=== PATIENT | female | born 1935 | race African-American/Black ===

== ENCOUNTER → 2017-09-25 | Outpatient (CLI) | payer MEDICARE ==
[~2017-09-25] MED LIST: ASPI325T8 PO; CHOL200074 PO; EZET1TAB30 PO; LISI10TA2 PO; METO25TA2 PO
--- NOTE | 2017-09-25 16:00 | KCIC ---
Bilateral digital screening mammograms: Reason for examination: Routine screening. No previous examinations for comparison. New baseline. Interpretation was made with the benefit of CAD. The skin and nipples show no abnormalities. No abnormal axillary lymph nodes are seen. The breast parenchyma shows scattered fibroglandular density. (Breast density: Category B.) There are no dominant masses, suspicious calcifications or architectural distortions. Some benign appearing calcifications are present. Impression: No evidence of malignancy. Recommend routine screening. BI-RADS category 2: Benign "Our facility is accredited by the [employer] Mammography Program." This patient's information has been entered into a reminder system for the patient to be notified with the results of her examination and a target date for the next mammogram. Electronically signed by: Paula Vazquez MD (09/25/2017 3:56 PM) [id number]
== END | disposition home or self-care (01) ==
LOC: KCIC MAMMO 12:10
PROVIDERS: ATTEND Family Medicine
DX: Z12.31 Encounter for screening mammogram for malignant neoplasm of breast (principal)
CPT/HCPCS: G0202; 77067

== ENCOUNTER 2019-05-12 11:30 | Inpatient (IN) | payer MEDICARE, OTHER ==
[~2019-05-12] VITALS: Ht 175.3 cm; Wt 102.1 kg
[~2019-05-12 11:30] MED LIST changes: +ASCO500T2 PO; +ASPI-612 PO; +CELE200C PO; +HYDR-3164 PO; +METO25TA4 PO; +MUPI15CR8 TP; +PRED1TAB3 PO; +TRAM50TA PO; +VIT1TABL8 PO
[2019-05-12 12:05] VITALS: BP 157/65
[2019-05-12] MEDS ORDERED: TRAM50TA PO (12:20)
[2019-05-12] MEDS ORDERED: TIZA4TAB2 PO (12:20)
[2019-05-12] MEDS ORDERED: PRED5SOL PO (12:20)
[2019-05-12] MEDS ORDERED: CHLO250T4 PO (12:20)
[2019-05-12] MEDS ORDERED: CELE200C PO (12:20)
--- NOTE | 2019-05-12 14:09 | PDOC1 ---
History and Physical Date of Admission Date of Admission DATE: 05/12/19 TIME: 14:08 Identification/Chief Complaint Chief Complaint direct admit due to right hip wound 83 yo F w/ PMHx, high cholesterol, CAD, Hypertension, lymphedema, lung ca who found on the floor 04/12 , she states she slid off her mattress and fell TRANSFERRED TO EARLY APRIL 2019 She has no significant pain complain. She has multiple abrasions, healing . ri ght hip wound now progressive deep wound since admit to She notes she has had progressive bilateral LE weakness and swelling over the past 4 months, has been seeing PMR for this, previously with compression stockings, . Past Medical History Past Medical History Past Medical History Past Medical History: CAD, Cancer, High Cholesterol, Hypertension, Other Additional Past Medical Histor: lyphodema, venous insufficency, tendonitis, bursitis, lung ca Past Surgical History: Other Additional Past Surgical Histo: lobectomy left, cardic stents x2, hernia surgery Alcohol Use: None Drug Use: None FAMILY HX HTN Cardiovascular: CAD, HTN, Hyperlipidemia Pulmonary: Other CENTRAL NERVOUS SYSTEM: Periperal neuropathy GI: No pertinent hx Heme/Onc: Cancer Hepatobiliary: No pertinent hx Psych: No pertinent hx Musculoskeletal: Weakness, Swelling Rheumatologic: No pertinent hx Infectious disease: No pertinent hx Renal/: No pertinent hx Endocrine: No pertinent hx Dermatology: Rash Past Surgical History Past Surgical History: Other Family History Family History: Hypertension Social History Smoke: No ALCOHOL: none Drugs: None Current Medications Current Medications Active Scripts Active I-Sidra Tablet (Vit A,C & E/Lutein/Minerals) 1 Each Tablet 1 Tab PO DAILY Vitamin C (Ascorbic Acid) 500 Mg Tablet 500 Mg PO DAILY Aspirin Ec (Aspirin) 81 Mg Tablet.dr 81 Mg PO DAILYWBKFT Metoprolol Tartrate 25 Mg Tablet 25 Mg PO BID MDD 1 [place] 5-325 Tablet (Acetaminophen/Hydrocodone Bitart) 1 Each Tablet 1 Tab PO PRN Q6HRS PRN Reported Tizanidine Hcl 4 Mg Tablet 2 Mg PO TID Chlorothiazide 250 Mg Tablet 25 Mg PO DAILY Prednisone 5 Mg/5 Ml Solution 10 Mg PO DAILY Allergies Allergies: Coded Allergies: No Known Drug Allergies (Unverified , 04/07/14) ROS Review of System Review of Systems Review of Systems Constitutional: Denies fever or chills [] Eyes: Denies change in visual acuity, redness, or eye pain [] HENT: Denies nasal congestion or sore throat [] Respiratory: Denies cough or shortness of breath [] Cardiovascular: No additional information not addressed in HPI [] GI: Denies abdominal pain, nausea, vomiting, bloody stools or diarrhea [] : Denies dysuria or hematuria [] Musculoskeletal: Denies back pain or joint pain [] Integument: Multiple abrasions RIGHT HIP WOUND HAS PROGRESSED X 1 WEEK Neurologic: Denies headache, focal weakness or sensory changes [] 14 PT systems were reviewed and found to be within normal limits, except as documented General: YES: Fatigue ALLERGY AND IMMUNOLOGY: No: Hives, Insect Bite Sensitivity, Itchy/Watery Eyes, Nasal Congestion, Post Nasal Drip, Seasonal Allergies, Other Hematological and Lymphatic: No: Bleeding Problems, Blood Clots, Blood Transfusions, Brusing, Night Sweats, Pallor, Swollen Lymph Nodes, Other Respiratory: No: Cough, Hemoptysis, Orthopnea, Pleuritic Pain, Shortness of breath, SOB with excertion, Sputum Changes, Stridor, Tachypnea, Wheezing, Other Musculoskeletal: Yes Gait Disturbance, Yes Joint Stiffness Neurological: Yes Gait Disturbance Skin: Yes Skin Lesion Changes Physical Exam Physical Exam Physical Exam Physical Exam Constitutional: Obese patient. Well developed, well nourished, no acute distress, non-toxic appearance. [] HENT: Normocephalic, atraumatic, bilateral external ears normal, oropharynx moist, no oral exudates, nose normal. [] Eyes: PERRLA, EOMI, conjunctiva normal, no discharge. [] Neck: Normal range of motion, no tenderness, supple, no stridor. [] Cardiovascular:Heart rate regular rhythm, no murmur [] Lungs & Thorax: Bilateral breath sounds clear to auscultation [] Abdomen: Bowel sounds normal, soft, no tenderness, no masses, no pulsatile masses. [] Skin: old pressure also noted on the RIGHT buttocks, WITH DRAINAGE, wick inserted by snf staff POA Back: Midline thoracic spine tenderness, no CVA tenderness. [] Extremities: No tenderness, no cyanosis, no clubbing, ROM intact, lymphedema bilateral lower extremities. Neurologic: Alert and oriented X 3, normal motor function, normal sensory function, no focal deficits noted. Cranial nerves II through XII intact Psychologic: Affect normal, judgement normal, mood normal. [] General: Alert, Oriented X3, Cooperative, No acute distress HEENT: Atraumatic, EOMI Lungs: Clear to auscultation Heart: RRR, no rubs Breasts: Not examined Abdomen: Normal bowel sounds, Soft Rectal Exam: not examined Extremities: No clubbing, No cyanosis Neuro: Normal speech, Cranial nerves 3-12 NL Psych/Mental Status: Mental status NL, Mood NL VTE Prophylaxis Ordered VTE Prophylaxis Devices: Contraindicated VTE Pharmacological Prophylaxi: Yes Assessment/Plan Assessment/Plan impression RIGHT Hip pressure wound, new drainage packed cultured CAD s/p stent placement - Follows closely with Dr. Henson Hypertension - cont meds. Hyperlipidemia - statin hx Hypokalemia - will monitor, Lung CA - s/p resection Valvular disease - Chronic venous insufficiency - //OT for lymphedema wraps Left leg weakness - Diastolic CHF - plan off loading bed ortho consult wound culture iv rocephin 1 gm q 24 hrs dvt prophylaxis wound care consult 58 min pt exam, chart review, > 50% of time spent with exam, chart review, pt care coordination ERICKA BIANCHI MD May 12, 2019 14:09
[2019-05-12] MEDS ORDERED: HYDROcodone/APAP 5/325MG 1 TAB TABLET PO PRN (14:30)
[2019-05-12 15:00] VITALS: BP 153/70
[2019-05-12] MEDS: traMADol 50 MG TABLET PO PRN ×2 (15:01→21:29)
[2019-05-12] MEDS: cefTRIAXone IV Push 1 GM VIAL. IVP SCH (15:02)
--- NOTE | 2019-05-12 15:11 | NUR ---
Wound Care: Ortho consulted to possibly debride wounds. Pictured and measured, and dressed by admission nurse recently this shift. Will follow up on 05/13/19
[2019-05-12 15:29] LABS: BASO % 0 % (0-3); EOS # 0.1 x10^3/uL (0.0-0.7); EOS % 1 % (0-3); HEMATOCRIT 34.8 % (36.0-47.0); HEMOGLOBIN 11.2 g/dL (12.0-15.5); LYMPH # 0.9 x10^3/uL (1.0-4.8); LYMPH % 11 % (24-48); MEAN CORPUSCULAR HEMOGLOBIN 29 pg (25-35); MEAN CORPUSCULAR HGB CONC 32 g/dL (31-37); MEAN CORPUSCULAR VOLUME 90 fL (79-100); MONO # 0.4 x10^3/uL (0.0-1.1); MONO % 5 % (0-9); NEUT # 7.1 x10^3/uL (1.8-7.7); NEUT % 83 % (31-73); PLATELET COUNT 204 x10^3/uL (140-400); RED BLOOD COUNT 3.88 x10^6/uL (3.50-5.40); WHITE BLOOD COUNT 8.6 x10^3/uL (4.0-11.0)
[2019-05-12 15:46] LABS: ALBUMIN 3.2 g/dL (3.4-5.0); ALBUMIN/GLOBULIN RATIO 0.9 (1.0-1.7); CALCIUM 9.2 mg/dL (8.5-10.1); GFR 64.2; POTASSIUM 4.3 mmol/L (3.5-5.1); TOTAL BILIRUBIN 0.5 mg/dL (0.2-1.0); TOTAL PROTEIN 6.9 g/dL (6.4-8.2)
--- NOTE | 2019-05-12 16:16 | NUR ---
SS following up with discharge planning. SS received notification that pt was from [facility]. SS contacted [facility], ; fax [phone], and confirmed that pt was a long-term and rehabilitation resident from there facility and was able to return when medically stable for discharge.
[2019-05-12 19:00] VITALS: BP 150/64
[2019-05-12] MEDS: ENOXAPARIN 40 MG/0.4 ML SYRINGE. SQ SCH (21:00)
[2019-05-12] MEDS: METOPROLOL TART IMMED RELEASE 25 MG TABLET. PO SCH (21:26)
--- NOTE | 2019-05-12 21:45 | NUR ---
Pt refused scheduled dose of Lovenox this PM despite this nurse explaining its use in preventing blood clots, stating, "I just don't know why I need it, what are the criteria to need it? I don't have blood clots and I won't get them". Pt continued expressing her concern saying, "That sounds like a vitamin, I don't want to take it just because something might happen". This nurse educated patient on common indications for Lovenox and reviewed pt's health history discussing potential risk factors for blood clots. Pt also provided with a handout about Lovenox as an additional resource. Pt in bed and call light within reach, will continue to monitor.
[2019-05-12 23:00] VITALS: BP 134/68
[2019-05-13] VITALS (13 sets, daily range): BP systolic 104–183; BP diastolic 42–99
--- NOTE | 2019-05-13 08:20 | PDOC ---
PROGRESS NOTES Chief Complaint Chief Complaint RIGHT Hip pressure wound, new drainage packed cultured CAD s/p stent placement - Follows closely with Dr. Henson Hypertension - cont meds. Hyperlipidemia - statin hx Hypokalemia - will monitor, Lung CA - s/p resection Valvular disease - Chronic venous insufficiency - //OT for lymphedema wraps Left leg weakness - Diastolic CHF - History of Present Illness History of Present Illness 83 yo F w/ PMHx, high cholesterol, CAD, Hypertension, lymphedema, lung ca who found on the floor 04/12 , she states she slid off her mattress and fell TRANSFERRED TO E[facility] APRIL 2019 She has no significant pain complain. She has multiple abrasions, healing . right hip wound now progressive deep wound since admit to She notes she has had progressive bilateral LE weakness and swelling over the past 4 months, Today sleeping hard, easily roused, states she is ready for surgery, planned for this evening. Vitals Vitals Vital Signs Date Time Temp Pulse Resp B/P (MAP) Pulse Ox O2 Delivery O2 Flow Rate FiO2 05/13/19 03:00 97.4 57 18 149/68 (95) 99 Room Air 97.4 Physical Exam General: Alert, Oriented X3, Cooperative, No acute distress Lungs: Clear Abdomen: Normal bowel sounds, Soft Extremities: No clubbing, No cyanosis Labs LABS Laboratory Tests Test 05/12/19 15:20 White Blood Count 8.6 x10^3/uL (4.0-11.0) Red Blood Count 3.88 x10^6/uL (3.50-5.40) Hemoglobin 11.2 g/dL (12.0-15.5) Hematocrit 34.8 % (36.0-47.0) Mean Corpuscular Volume 90 fL (79-100) Mean Corpuscular Hemoglobin 29 pg (25-35) Mean Corpuscular Hemoglobin Concent 32 g/dL (31-37) Red Cell Distribution Width 15.0 % (11.5-14.5) Platelet Count 204 x10^3/uL (140-400) Neutrophils (%) (Auto) 83 % (31-73) Lymphocytes (%) (Auto) 11 % (24-48) Monocytes (%) (Auto) 5 % (0-9) Eosinophils (%) (Auto) 1 % (0-3) Basophils (%) (Auto) 0 % (0-3) Neutrophils # (Auto) 7.1 x10^3/uL (1.8-7.7) Lymphocytes # (Auto) 0.9 x10^3/uL (1.0-4.8) Monocytes # (Auto) 0.4 x10^3/uL (0.0-1.1) Eosinophils # (Auto) 0.1 x10^3/uL (0.0-0.7) Basophils # (Auto) 0.0 x10^3/uL (0.0-0.2) Sodium Level 142 mmol/L (136-145) Potassium Level 4.3 mmol/L (3.5-5.1) Chloride Level 103 mmol/L (98-107) Carbon Dioxide Level 28 mmol/L (21-32) Anion Gap 11 (6-14) Blood Urea Nitrogen 38 mg/dL (7-20) Creatinine 1.0 mg/dL (0.6-1.0) Estimated GFR (Cockcroft-Gault) 64.2 BUN/Creatinine Ratio 38 (6-20) Glucose Level 112 mg/dL (70-99) Calcium Level 9.2 mg/dL (8.5-10.1) Total Bilirubin 0.5 mg/dL (0.2-1.0) Aspartate Amino Transf (AST/SGOT) 18 U/L (15-37) Alanine Aminotransferase (ALT/SGPT) 21 U/L (14-59) Alkaline Phosphatase 34 U/L (46-116) Total Protein 6.9 g/dL (6.4-8.2) Albumin 3.2 g/dL (3.4-5.0) Albumin/Globulin Ratio 0.9 (1.0-1.7) Comment Review of Relevant I have reviewed the following items esteban (where applicable) has been applied. Labs Laboratory Tests Test 05/12/19 15:20 White Blood Count 8.6 x10^3/uL (4.0-11.0) Red Blood Count 3.88 x10^6/uL (3.50-5.40) Hemoglobin 11.2 g/dL (12.0-15.5) Hematocrit 34.8 % (36.0-47.0) Mean Corpuscular Volume 90 fL (79-100) Mean Corpuscular Hemoglobin 29 pg (25-35) Mean Corpuscular Hemoglobin Concent 32 g/dL (31-37) Red Cell Distribution Width 15.0 % (11.5-14.5) Platelet Count 204 x10^3/uL (140-400) Neutrophils (%) (Auto) 83 % (31-73) Lymphocytes (%) (Auto) 11 % (24-48) Monocytes (%) (Auto) 5 % (0-9) Eosinophils (%) (Auto) 1 % (0-3) Basophils (%) (Auto) 0 % (0-3) Neutrophils # (Auto) 7.1 x10^3/uL (1.8-7.7) Lymphocytes # (Auto) 0.9 x10^3/uL (1.0-4.8) Monocytes # (Auto) 0.4 x10^3/uL (0.0-1.1) Eosinophils # (Auto) 0.1 x10^3/uL (0.0-0.7) Basophils # (Auto) 0.0 x10^3/uL (0.0-0.2) Sodium Level 142 mmol/L (136-145) Potassium Level 4.3 mmol/L (3.5-5.1) Chloride Level 103 mmol/L (98-107) Carbon Dioxide Level 28 mmol/L (21-32) Anion Gap 11 (6-14) Blood Urea Nitrogen 38 mg/dL (7-20) Creatinine 1.0 mg/dL (0.6-1.0) Estimated GFR (Cockcroft-Gault) 64.2 BUN/Creatinine Ratio 38 (6-20) Glucose Level 112 mg/dL (70-99) Calcium Level 9.2 mg/dL (8.5-10.1) Total Bilirubin 0.5 mg/dL (0.2-1.0) Aspartate Amino Transf (AST/SGOT) 18 U/L (15-37) Alanine Aminotransferase (ALT/SGPT) 21 U/L (14-59) Alkaline Phosphatase 34 U/L (46-116) Total Protein 6.9 g/dL (6.4-8.2) Albumin 3.2 g/dL (3.4-5.0) Albumin/Globulin Ratio 0.9 (1.0-1.7) Laboratory Tests Test 7/25/19 15:20 White Blood Count 8.6 x10^3/uL (4.0-11.0) Red Blood Count 3.88 x10^6/uL (3.50-5.40) Hemoglobin 11.2 g/dL (12.0-15.5) Hematocrit 34.8 % (36.0-47.0) Mean Corpuscular Volume 90 fL (79-100) Mean Corpuscular Hemoglobin 29 pg (25-35) Mean Corpuscular Hemoglobin Concent 32 g/dL (31-37) Red Cell Distribution Width 15.0 % (11.5-14.5) Platelet Count 204 x10^3/uL (140-400) Neutrophils (%) (Auto) 83 % (31-73) Lymphocytes (%) (Auto) 11 % (24-48) Monocytes (%) (Auto) 5 % (0-9) Eosinophils (%) (Auto) 1 % (0-3) Basophils (%) (Auto) 0 % (0-3) Neutrophils # (Auto) 7.1 x10^3/uL (1.8-7.7) Lymphocytes # (Auto) 0.9 x10^3/uL (1.0-4.8) Monocytes # (Auto) 0.4 x10^3/uL (0.0-1.1) Eosinophils # (Auto) 0.1 x10^3/uL (0.0-0.7) Basophils # (Auto) 0.0 x10^3/uL (0.0-0.2) Sodium Level 142 mmol/L (136-145) Potassium Level 4.3 mmol/L (3.5-5.1) Chloride Level 103 mmol/L (98-107) Carbon Dioxide Level 28 mmol/L (21-32) Anion Gap 11 (6-14) Blood Urea Nitrogen 38 mg/dL (7-20) Creatinine 1.0 mg/dL (0.6-1.0) Estimated GFR (Cockcroft-Gault) 64.2 BUN/Creatinine Ratio 38 (6-20) Glucose Level 112 mg/dL (70-99) Calcium Level 9.2 mg/dL (8.5-10.1) Total Bilirubin 0.5 mg/dL (0.2-1.0) Aspartate Amino Transf (AST/SGOT) 18 U/L (15-37) Alanine Aminotransferase (ALT/SGPT) 21 U/L (14-59) Alkaline Phosphatase 34 U/L (46-116) Total Protein 6.9 g/dL (6.4-8.2) Albumin 3.2 g/dL (3.4-5.0) Albumin/Globulin Ratio 0.9 (1.0-1.7) Medications Current Medications Ascorbic Acid (Vitamin C) 500 mg DAILY PO ; Start 05/13/19 at 09:00 Aspirin (Ecotrin) 81 mg DAILYWBKFT PO ; Start 05/13/19 at 08:00 Acetaminophen/ Hydrocodone Bitart (Lortab 5/325) 1 tab PRN Q6HRS PRN PO PAIN; Start 05/12/19 at 14:30; Stop 05/12/19 at 14:54; Status DC Metoprolol Tartrate (Lopressor) 25 mg BID PO Last administered on 05/12/19at 21:26; Start 05/12/19 at 21:00 Multivitamins/ Minerals (I-Sidra) 1 tab DAILY PO ; Start 05/13/19 at 09:00 Chlorthalidone (Thalitone) 25 mg DAILY PO ; Start 05/13/19 at 09:00 Ceftriaxone Sodium (Rocephin) 1 gm Q24H IVP Last administered on 05/12/19at 15:02; Start 05/12/19 at 15:00 Enoxaparin Sodium (Lovenox 40mg Syringe) 40 mg Q24H SQ ; Start 05/12/19 at 21:00 Tramadol HCl (Ultram) 50 mg PRN Q6HRS PRN PO PAIN Last administered on 05/12/19at 21:29; Start 05/12/19 at 15:00 Active Scripts Active I-Sidra Tablet (Vit A,C & E/Lutein/Minerals) 1 Each Tablet 1 Tab PO DAILY Vitamin C (Ascorbic Acid) 500 Mg Tablet 500 Mg PO DAILY Aspirin Ec (Aspirin) 81 Mg Tablet.dr 81 Mg PO DAILYWBKFT Metoprolol Tartrate 25 Mg Tablet 25 Mg PO BID MDD 1 [place] 5-325 Tablet (Acetaminophen/Hydrocodone Bitart) 1 Each Tablet 1 Tab PO PRN Q6HRS PRN Reported Tramadol Hcl 50 Mg Tablet 50 Mg PO Q6HRS PRN Celebrex (Celecoxib) 200 Mg Capsule 200 Mg PO BID 30 Days Prednisone 5 Mg/5 Ml Solution 10 Mg PO DAILY Tizanidine Hcl 4 Mg Tablet 2 Mg PO TID Chlorothiazide 250 Mg Tablet 25 Mg PO DAILY Vitals/I & O Vital Sign - Last 24 Hours 05/12/19 05/12/19 05/12/19 05/12/19 12:05 14:22 15:00 15:01 Temp 97.8 97.4 97.8 97.4 Pulse 64 61 Resp 18 18 B/P (MAP) 157/65 (95) 153/70 (97) Pulse Ox 96 98 O2 Delivery Room Air Room Air Room Air Room Air 05/12/19 05/12/19 05/12/19 05/12/19 19:00 20:30 21:26 21:29 Temp 97.5 97.5 Pulse 63 63 Resp 18 16 B/P (MAP) 150/64 (92) 146/61 Pulse Ox 97 O2 Delivery Room Air Room Air Room Air 05/12/19 05/12/19 05/13/19 23:00 23:00 03:00 Temp 97.1 97.4 97.1 97.4 Pulse 65 57 Resp 14 18 18 B/P (MAP) 134/68 (90) 149/68 (95) Pulse Ox 97 99 O2 Delivery Room Air Room Air Room Air Intake and Output 0 05/12/19 05/12/19 05/13/19 14:59 22:59 06:59 Output Total 0 ml Balance 0 ml RUMA HAMILTON MD May 13, 2019 08:20
[2019-05-13] MEDS ORDERED: IV RINGERS,LACTATED 1000ML 1,000 ML IV SCH (08:38)
[2019-05-13] MEDS ORDERED: LIDOCAINE 1% PF 2 ML VIAL. ID PRN (08:45)
[2019-05-13] MEDS ORDERED: fentaNYL PF VIAL 100 MCG/2 ML VIAL IV PRN (08:45)
[2019-05-13] MEDS ORDERED: HYDROmorphone 2 MG/ML VIAL IV PRN (08:45)
[2019-05-13] MEDS ORDERED: MORPHINE SULFATE 2 MG/ML VIAL. IV PRN (08:45)
[2019-05-13] MEDS ORDERED: ONDANSETRON PF 4 MG/2 ML VIAL. IV PRN (08:45)
[2019-05-13] MEDS ORDERED: PROCHLORPERAZINE 10 MG/2 ML VIAL. IV PRN (08:45)
[2019-05-13] MEDS: ASPIRIN ENTERIC COATED 81 MG TABLET.DR. PO SCH (09:17)
[2019-05-13] MEDS: METOPROLOL TART IMMED RELEASE 25 MG TABLET. PO SCH ×2 (09:17→21:37)
[2019-05-13] MEDS: ASCORBIC ACID 500 MG TABLET PO SCH (09:17)
[2019-05-13] MEDS: CHLORTHALIDONE 25 MG TABLET. PO SCH (09:17)
[2019-05-13] MEDS: MULTIVITAMIN I-VITE TABLET. PO SCH (09:17)
[2019-05-13 12:25] LABS: BASO # 0.1 x10^3/uL (0.0-0.2); BASO % 1 % (0-3); EOS # 0.5 x10^3/uL (0.0-0.7); EOS % 7 % (0-3); HEMATOCRIT 33.4 % (36.0-47.0); HEMOGLOBIN 10.9 g/dL (12.0-15.5); LYMPH # 1.7 x10^3/uL (1.0-4.8); LYMPH % 24 % (24-48); MEAN CORPUSCULAR HEMOGLOBIN 29 pg (25-35); MEAN CORPUSCULAR HGB CONC 33 g/dL (31-37); MEAN CORPUSCULAR VOLUME 90 fL (79-100); MONO # 0.8 x10^3/uL (0.0-1.1); MONO % 11 % (0-9); NEUT # 4.2 x10^3/uL (1.8-7.7); NEUT % 57 % (31-73); PLATELET COUNT 203 x10^3/uL (140-400); RED BLOOD COUNT 3.72 x10^6/uL (3.50-5.40); WHITE BLOOD COUNT 7.3 x10^3/uL (4.0-11.0)
[2019-05-13 12:59] LABS: ALBUMIN 3.1 g/dL (3.4-5.0); ALBUMIN/GLOBULIN RATIO 0.9 (1.0-1.7); CALCIUM 9.5 mg/dL (8.5-10.1); GFR 64.2; POTASSIUM 3.9 mmol/L (3.5-5.1); TOTAL BILIRUBIN 0.8 mg/dL (0.2-1.0); TOTAL PROTEIN 6.7 g/dL (6.4-8.2)
--- NOTE | 2019-05-13 13:00 | NUR ---
Wound Care: Wound care consult for multiple wounds, see wound intervention. All wounds assessed and cleansed with wound wash. L great covered by dry eschar, painted with Betadine and left MAUREEN. Both R knee abrasion and R abdomen abrasion covered with honey, Xeroform and foam. R hip not assessed at this time, dressing CDI, pt is to go to OR for debridement and possible wound vac placement this afternoon, will reassess on Thursday. No other wound noted upon assessment, pt able to turn well in bed by herself, encouraged turning q2h while in bed. P500 bed in use. Pt left in bed turned on her back per her request, call light within reach. Wound care will continue to follow.
[2019-05-13] MEDS: cefTRIAXone IV Push 1 GM VIAL. IVP SCH (14:32)
[2019-05-13] MEDS ORDERED: KETOROLAC 30 MG/ML INJ FOR OR. INJ ONE (17:43)
[2019-05-13] MEDS ORDERED: ONDANSETRON PF 4 MG/2 ML VIAL. ONE (17:43)
[2019-05-13] MEDS ORDERED: LIDOCAINE 2% PF 5 ML VIAL. ONE (17:43)
[2019-05-13] MEDS ORDERED: PROPOFOL 20 ML IV ONE (17:43)
[2019-05-13] MEDS ORDERED: SEVOFLURANE 16 TO 30 MINUTES. IH ONE (17:43)
[2019-05-13] MEDS ORDERED: PHENYLEPHRINE in 0.9% NACL PF 1 MG/10 ML SYRINGE. IV ONE (18:06)
[2019-05-13] MEDS ORDERED: ePHEDrine PF IN SALINE 50 MG/10 ML SYRINGE. IV ONE (18:24)
--- NOTE | 2019-05-13 18:55 | PDOC4 ---
Operative Note Operative Note Date of surgery: 05/13/2019 Preoperative diagnosis pressure ulcer right hip area Postoperative diagnosis: Same with skin and deep subcutaneous tissue involvement Operative procedure: Irrigation debridement right hip wound with wound VAC placement Surgeon: Lexus Anesthesia: Gen. Estimated blood loss: 20 mL Complications: None Operative indications: Kanwal is an 83-year-old female with a right hip wound that has had progressive difficulties healing despite wound care treatments. I had gone over with her the necessity of cleaning up the tissue around the wound and the plan of a likely wound VAC and subsequent wound care. We covered the possibility of a long time and healing the necessity of keeping pressure off the area among other risk factors such as nutrition and overall health. All her questions were answered she wishes to proceed with surgical evaluation and treatment. Operative text: Patient was identified procedure verified patient placed in the supine position on the operating table. After adequate amounts of general anesthesia were administered she was placed decubitus right side up with the Stulberg hip positioner and the right hip was prepped and draped in standard sterile fashion. After timeout was performed patient procedure identified and verified sharp debridement was carried out of the right hip of the surrounding necrotic skin and subcutaneous tissue with scalpel and Rngeurs after cultures were obtained intraoperatively. After achieving good edges of viable vascularized tissue bleeding points were controlled by electrocautery thorough irrigation carried out normal saline solution and wound VAC was placed on good suction. Patient was returned recovery room in stable condition having tolerated procedure well DONNA VELARDE MD May 13, 2019 18:55
[2019-05-13] MEDS ORDERED: fentaNYL PF VIAL 100 MCG/2 ML VIAL ONE (19:50)
[2019-05-13] MEDS: fentaNYL PF VIAL 100 MCG/2 ML VIAL IV PRN ×2 (19:53→20:09)
--- NOTE | 2019-05-13 20:10 | NUR ---
Pt arrived from PACU via bed. Pt A&O, VSS, and c/o mild pain at this time. Pt's family at bedside, call light within reach, and bed lowest/locked position, will continue to monitor.
[2019-05-13] MEDS: ENOXAPARIN 40 MG/0.4 ML SYRINGE. SQ SCH (21:00)
[2019-05-13] MEDS: LACTOBACILLUS RHAMNOSUS GG 1 CAPSULE. PO SCH (21:36)
[2019-05-13] MEDS: traMADol 50 MG TABLET PO PRN (21:36)
[2019-05-14] VITALS (8 sets, daily range): BP systolic 113–185; BP diastolic 44–93
--- NOTE | 2019-05-14 00:28 | CONS ---
DATE OF CONSULTATION: 05/13/2019 REASON FOR CONSULTATION: Right hip wound. REQUESTING PHYSICIAN: Dr. Ronny Esteban. HISTORY OF PRESENT ILLNESS: The patient is an 83-year-old female with no surgical history to the right hip, who apparently slid off for mattress and fell to the floor on about 04/12/2019 and has been undergoing wound care since that time. She apparently was direct admitted from her primary care physician and showing no progress of her wound healing. She has had bilateral lower extremity weakness and swelling over the past 4 months as well. PAST MEDICAL HISTORY: Significant for cancer, hypertension, hypercholesterolemia, heart disease, lymphedema, venous insufficiency, tendinitis, and history of lung cancer. PAST SURGICAL HISTORY: Cataracts, cardiac stents, hernia surgery, and lobectomy to her left long. She has some peripheral neuropathy and hyperlipidemia as well. FAMILY HISTORY: Only of hypertension. SOCIAL HISTORY: Denies smoking, alcohol or drug use. MEDICATIONS: List is reviewed. ALLERGIES: She has no known drug allergies. REVIEW OF SYSTEMS: Significant for no fever, chills, chest pain, or shortness of breath. She does have some weakness, but no focal weakness, numbness or tingling. Right hip wound has significantly progressed and has become odorous over the past week. PHYSICAL EXAMINATION: GENERAL: A pleasant, cooperative 83-year-old female. EXTREMITIES: She has normal motion of bilateral shoulders, elbows, wrists. Examination of the right hip reveals a large transverse hip wound going from basically the greater trochanter over posteriorly that is deep to the subcutaneous tissue with some exposed muscle and is odorous and has devitalized tissue at its base. IMPRESSION: Right hip pressure wound, nonhealing. TREATMENT PLAN: I went over with her the need for debridement of this wound and likely wound VAC placement, Infectious Disease consultation, and likely [facility] wound care for this, especially keeping pressure off at. All her questions were answered. She agrees to proceed with surgical evaluation and treatment, which will occur today. DONNA VELARDE MD DR: TERRENCE/zuleima JOB#: [id number] / [id number]
--- NOTE | 2019-05-14 08:38 | PDOC ---
PROGRESS NOTES Chief Complaint Chief Complaint RIGHT Hip pressure wound, new drainage packed cultured CAD s/p stent placement - Follows closely with Dr. Henson Hypertension - cont meds. Hyperlipidemia - statin hx Hypokalemia - will monitor, Lung CA - s/p resection Valvular disease - Chronic venous insufficiency - //OT for lymphedema wraps Left leg weakness - Diastolic CHF - History of Present Illness History of Present Illness 83 yo F w/ PMHx, high cholesterol, CAD, Hypertension, lymphedema, lung ca who found on the floor 04/12 , she states she slid off her mattress and fell TRANSFERRED TO EARLY APRIL 2019 She has no significant pain complain. She has multiple abrasions, healing . right hip wound now progressive deep wound since admit to She notes she has had progressive bilateral LE weakness and swelling over the past 4 months, 05/13: Irrigation debridement right hip wound with wound VAC placement Today awake, somewhat alert, but forgetful. C/o right calf cramping post- operatively and is requesting a laxative for constipation. Vitals Vitals Vital Signs Date Time Temp Pulse Resp B/P (MAP) Pulse Ox O2 Delivery O2 Flow Rate FiO2 05/14/19 07:40 98.2 62 18 144/55 (84) 96 Room Air 98.2 Physical Exam General: Alert, Oriented X3, Cooperative, No acute distress Lungs: Clear Abdomen: Normal bowel sounds, Soft Extremities: No clubbing, No cyanosis Labs LABS Laboratory Tests Test 05/13/19 12:05 White Blood Count 7.3 x10^3/uL (4.0-11.0) Red Blood Count 3.72 x10^6/uL (3.50-5.40) Hemoglobin 10.9 g/dL (12.0-15.5) Hematocrit 33.4 % (36.0-47.0) Mean Corpuscular Volume 90 fL (79-100) Mean Corpuscular Hemoglobin 29 pg (25-35) Mean Corpuscular Hemoglobin Concent 33 g/dL (31-37) Red Cell Distribution Width 15.0 % (11.5-14.5) Platelet Count 203 x10^3/uL (140-400) Neutrophils (%) (Auto) 57 % (31-73) Lymphocytes (%) (Auto) 24 % (24-48) Monocytes (%) (Auto) 11 % (0-9) Eosinophils (%) (Auto) 7 % (0-3) Basophils (%) (Auto) 1 % (0-3) Neutrophils # (Auto) 4.2 x10^3/uL (1.8-7.7) Lymphocytes # (Auto) 1.7 x10^3/uL (1.0-4.8) Monocytes # (Auto) 0.8 x10^3/uL (0.0-1.1) Eosinophils # (Auto) 0.5 x10^3/uL (0.0-0.7) Basophils # (Auto) 0.1 x10^3/uL (0.0-0.2) Sodium Level 141 mmol/L (136-145) Potassium Level 3.9 mmol/L (3.5-5.1) Chloride Level 102 mmol/L (98-107) Carbon Dioxide Level 31 mmol/L (21-32) Anion Gap 8 (6-14) Blood Urea Nitrogen 27 mg/dL (7-20) Creatinine 1.0 mg/dL (0.6-1.0) Estimated GFR (Cockcroft-Gault) 64.2 BUN/Creatinine Ratio 27 (6-20) Glucose Level 87 mg/dL (70-99) Calcium Level 9.5 mg/dL (8.5-10.1) Total Bilirubin 0.8 mg/dL (0.2-1.0) Aspartate Amino Transf (AST/SGOT) 20 U/L (15-37) Alanine Aminotransferase (ALT/SGPT) 20 U/L (14-59) Alkaline Phosphatase 32 U/L (46-116) Total Protein 6.7 g/dL (6.4-8.2) Albumin 3.1 g/dL (3.4-5.0) Albumin/Globulin Ratio 0.9 (1.0-1.7) Comment Review of Relevant I have reviewed the following items esteban (where applicable) has been applied. Labs Laboratory Tests Test 05/12/19 13:00 05/12/19 15:20 05/13/19 12:05 Nasal Screen MRSA (PCR) Negative (Negative) White Blood Count 8.6 x10^3/uL (4.0-11.0) 7.3 x10^3/uL (4.0-11.0) Red Blood Count 3.88 x10^6/uL (3.50-5.40) 3.72 x10^6/uL (3.50-5.40) Hemoglobin 11.2 g/dL (12.0-15.5) 10.9 g/dL (12.0-15.5) Hematocrit 34.8 % (36.0-47.0) 33.4 % (36.0-47.0) Mean Corpuscular Volume 90 fL (79-100) 90 fL (79-100) Mean Corpuscular Hemoglobin 29 pg (25-35) 29 pg (25-35) Mean Corpuscular Hemoglobin Concent 32 g/dL (31-37) 33 g/dL (31-37) Red Cell Distribution Width 15.0 % (11.5-14.5) 15.0 % (11.5-14.5) Platelet Count 204 x10^3/uL (140-400) 203 x10^3/uL (140-400) Neutrophils (%) (Auto) 83 % (31-73) 57 % (31-73) Lymphocytes (%) (Auto) 11 % (24-48) 24 % (24-48) Monocytes (%) (Auto) 5 % (0-9) 11 % (0-9) Eosinophils (%) (Auto) 1 % (0-3) 7 % (0-3) Basophils (%) (Auto) 0 % (0-3) 1 % (0-3) Neutrophils # (Auto) 7.1 x10^3/uL (1.8-7.7) 4.2 x10^3/uL (1.8-7.7) Lymphocytes # (Auto) 0.9 x10^3/uL (1.0-4.8) 1.7 x10^3/uL (1.0-4.8) Monocytes # (Auto) 0.4 x10^3/uL (0.0-1.1) 0.8 x10^3/uL (0.0-1.1) Eosinophils # (Auto) 0.1 x10^3/uL (0.0-0.7) 0.5 x10^3/uL (0.0-0.7) Basophils # (Auto) 0.0 x10^3/uL (0.0-0.2) 0.1 x10^3/uL (0.0-0.2) Sodium Level 142 mmol/L (136-145) 141 mmol/L (136-145) Potassium Level 4.3 mmol/L (3.5-5.1) 3.9 mmol/L (3.5-5.1) Chloride Level 103 mmol/L (98-107) 102 mmol/L (98-107) Carbon Dioxide Level 28 mmol/L (21-32) 31 mmol/L (21-32) Anion Gap 11 (6-14) 8 (6-14) Blood Urea Nitrogen 38 mg/dL (7-20) 27 mg/dL (7-20) Creatinine 1.0 mg/dL (0.6-1.0) 1.0 mg/dL (0.6-1.0) Estimated GFR (Cockcroft-Gault) 64.2 64.2 BUN/Creatinine Ratio 38 (6-20) 27 (6-20) Glucose Level 112 mg/dL (70-99) 87 mg/dL (70-99) Calcium Level 9.2 mg/dL (8.5-10.1) 9.5 mg/dL (8.5-10.1) Total Bilirubin 0.5 mg/dL (0.2-1.0) 0.8 mg/dL (0.2-1.0) Aspartate Amino Transf (AST/SGOT) 18 U/L (15-37) 20 U/L (15-37) Alanine Aminotransferase (ALT/SGPT) 21 U/L (14-59) 20 U/L (14-59) Alkaline Phosphatase 34 U/L (46-116) 32 U/L (46-116) Total Protein 6.9 g/dL (6.4-8.2) 6.7 g/dL (6.4-8.2) Albumin 3.2 g/dL (3.4-5.0) 3.1 g/dL (3.4-5.0) Albumin/Globulin Ratio 0.9 (1.0-1.7) 0.9 (1.0-1.7) Laboratory Tests Test 05/13/19 12:05 White Blood Count 7.3 x10^3/uL (4.0-11.0) Red Blood Count 3.72 x10^6/uL (3.50-5.40) Hemoglobin 10.9 g/dL (12.0-15.5) Hematocrit 33.4 % (36.0-47.0) Mean Corpuscular Volume 90 fL (79-100) Mean Corpuscular Hemoglobin 29 pg (25-35) Mean Corpuscular Hemoglobin Concent 33 g/dL (31-37) Red Cell Distribution Width 15.0 % (11.5-14.5) Platelet Count 203 x10^3/uL (140-400) Neutrophils (%) (Auto) 57 % (31-73) Lymphocytes (%) (Auto) 24 % (24-48) Monocytes (%) (Auto) 11 % (0-9) Eosinophils (%) (Auto) 7 % (0-3) Basophils (%) (Auto) 1 % (0-3) Neutrophils # (Auto) 4.2 x10^3/uL (1.8-7.7) Lymphocytes # (Auto) 1.7 x10^3/uL (1.0-4.8) Monocytes # (Auto) 0.8 x10^3/uL (0.0-1.1) Eosinophils # (Auto) 0.5 x10^3/uL (0.0-0.7) Basophils # (Auto) 0.1 x10^3/uL (0.0-0.2) Sodium Level 141 mmol/L (136-145) Potassium Level 3.9 mmol/L (3.5-5.1) Chloride Level 102 mmol/L (98-107) Carbon Dioxide Level 31 mmol/L (21-32) Anion Gap 8 (6-14) Blood Urea Nitrogen 27 mg/dL (7-20) Creatinine 1.0 mg/dL (0.6-1.0) Estimated GFR (Cockcroft-Gault) 64.2 BUN/Creatinine Ratio 27 (6-20) Glucose Level 87 mg/dL (70-99) Calcium Level 9.5 mg/dL (8.5-10.1) Total Bilirubin 0.8 mg/dL (0.2-1.0) Aspartate Amino Transf (AST/SGOT) 20 U/L (15-37) Alanine Aminotransferase (ALT/SGPT) 20 U/L (14-59) Alkaline Phosphatase 32 U/L (46-116) Total Protein 6.7 g/dL (6.4-8.2) Albumin 3.1 g/dL (3.4-5.0) Albumin/Globulin Ratio 0.9 (1.0-1.7) Medications Current Medications Ascorbic Acid (Vitamin C) 500 mg DAILY PO Last administered on 05/13/19 09:17; Start 05/13/19 at 09:00 Aspirin (Ecotrin) 81 mg DAILYWBKFT PO Last administered on 05/13/19at 09:17; Start 05/13/19 at 08:00 Acetaminophen/ Hydrocodone Bitart (Lortab 5/325) 1 tab PRN Q6HRS PRN PO PAIN; Start 05/12/19 at 14:30; Stop 05/12/19 at 14:54; Status DC Metoprolol Tartrate (Lopressor) 25 mg BID PO Last administered on 05/13/19at 21:37; Start 05/12/19 at 21:00 Multivitamins/ Minerals (I-Sidra) 1 tab DAILY PO Last administered on 05/13/19at 09:17; Start 05/13/19 at 09:00 Chlorthalidone (Thalitone) 25 mg DAILY PO Last administered on 05/13/19at 09:17; Start 05/13/19 at 09:00 Ceftriaxone Sodium (Rocephin) 1 gm Q24H IVP Last administered on 05/13/19at 14:32; Start 05/12/19 at 15:00 Enoxaparin Sodium (Lovenox 40mg Syringe) 40 mg Q24H SQ ; Start 05/12/19 at 21:00 Tramadol HCl (Ultram) 50 mg PRN Q6HRS PRN PO PAIN Last administered on 05/13/19at 21:36; Start 05/12/19 at 15:00 Ondansetron HCl (Zofran) 4 mg PRN Q6HRS PRN IV NAUSEA/VOMITING; Start 05/13/19 at 08:45; Stop 05/14/19 at 08:44 Fentanyl Citrate (Fentanyl 2ml Vial) 25 mcg PRN Q5MIN PRN IV MILD PAIN 1-3; Start 05/13/19 at 08:45; Stop 05/14/19 at 08:44 Fentanyl Citrate (Fentanyl 2ml Vial) 50 mcg PRN Q5MIN PRN IV MODERATE TO SEVERE PAIN Last administered on 05/13/19at 20:09; Start 05/13/19 at 08:45; Stop 05/14/19 at 08:44 Morphine Sulfate (Morphine Sulfate) 1 mg PRN Q10MIN PRN IV SEVERE PAIN 7-10; Start 05/13/19 at 08:45; Stop 05/14/19 at 08:44 Ringer's Solution 1,000 ml @ 30 mls/hr Q24H IV Last administered on 05/13/19at 17:37; Start 05/13/19 at 08:38; Stop 05/13/19 at 20:37; Status DC Lidocaine HCl (Xylocaine-Mpf 1% 2ml Vial) 2 ml 1X PRN PRN ID IV START; Start 05/13/19 at 08:45; Stop 05/14/19 at 08:44 Hydromorphone HCl (Dilaudid) 0.5 mg PRN Q10MIN PRN IV SEV PAIN, Second choice; Start 05/13/19 at 08:45; Stop 05/14/19 at 08:44 Prochlorperazine Edisylate (Compazine) 5 mg PACU PRN PRN IV NAUSEA, MRX1; Start 05/13/19 at 08:45; Stop 05/14/19 at 08:44 Lactobacillus Rhamnosus (Culturelle) 1 cap BID PO Last administered on 05/13/19at 21:36; Start 05/13/19 at 21:00 Sevoflurane (Ultane) 15 ml STK-MED ONCE IH ; Start 05/13/19 at 17:43; Stop 05/13/19 at 17:44; Status DC Propofol 20 ml @ As Directed STK-MED ONCE IV ; Start 05/13/19 at 17:43; Stop 05/13/19 at 17:44; Status DC Lidocaine HCl (Lidocaine Pf 2% Vial) 5 ml STK-MED ONCE .ROUTE ; Start 05/13/19 at 17:43; Stop 05/13/19 at 17:44; Status DC Ketorolac Tromethamine (Toradol For Or Only) 30 mg STK-MED ONCE INJ ; Start 05/13/19 at 17:43; Stop 05/13/19 at 17:44; Status DC Ondansetron HCl (Zofran) 4 mg STK-MED ONCE .ROUTE ; Start 05/13/19 at 17:43; Stop 05/13/19 at 17:44; Status DC Phenylephrine HCl (PHENYLEPHRINE in 0.9% NACL PF) 1 mg STK-MED ONCE IV ; Start 05/13/19 at 18:06; Stop 05/13/19 at 18:07; Status DC Ephedrine Sulfate (ePHEDrine PF IN SALINE SYRINGE) 50 mg STK-MED ONCE IV ; Start 05/13/19 at 18:24; Stop 05/13/19 at 18:25; Status DC Fentanyl Citrate (Fentanyl 2ml Vial) 100 mcg STK-MED ONCE .ROUTE ; Start 05/13/19 at 19:50; Stop 05/13/19 at 19:51; Status DC Active Scripts Active I-Sidra Tablet (Vit A,C & E/Lutein/Minerals) 1 Each Tablet 1 Tab PO DAILY Vitamin C (Ascorbic Acid) 500 Mg Tablet 500 Mg PO DAILY Aspirin Ec (Aspirin) 81 Mg Tablet.dr 81 Mg PO DAILYWBKFT Metoprolol Tartrate 25 Mg Tablet 25 Mg PO BID MDD 1 [place] 5-325 Tablet (Acetaminophen/Hydrocodone Bitart) 1 Each Tablet 1 Tab PO PRN Q6HRS PRN Reported Tramadol Hcl 50 Mg Tablet 50 Mg PO Q6HRS PRN Celebrex (Celecoxib) 200 Mg Capsule 200 Mg PO BID 30 Days Prednisone 5 Mg/5 Ml Solution 10 Mg PO DAILY Tizanidine Hcl 4 Mg Tablet 2 Mg PO TID Chlorothiazide 250 Mg Tablet 25 Mg PO DAILY Vitals/I & O Vital Sign - Last 24 Hours 05/13/19 05/13/19 05/13/19 05/13/19 09:17 11:09 15:40 17:43 Temp 97.4 97.7 97.0 97.4 97.7 97.0 Pulse 53 53 59 69 Resp 18 18 20 B/P (MAP) 135/63 153/64 (93) 183/73 (109) 198/79 Pulse Ox 97 98 97 O2 Delivery Room Air Room Air Room Air 05/13/19 05/13/19 05/13/19 05/13/19 18:47 19:02 19:17 19:32 Pulse 70 72 57 61 Resp 20 20 20 20 B/P (MAP) 172/68 165/78 151/78 165/82 Pulse Ox 98 95 99 91 O2 Delivery Room Air Room Air Room Air Room Air 05/13/19 05/13/19 05/13/19 05/13/19 19:47 19:53 19:59 20:09 Temp 97.0 97.4 97.0 97.4 Pulse 78 62 Resp 20 20 18 20 B/P (MAP) 156/75 155/67 (96) Pulse Ox 99 99 99 99 O2 Delivery Room Air Room Air Room Air Room Air 05/13/19 05/13/19 05/13/19 05/13/19 20:15 20:30 20:30 20:30 Pulse 62 59 Resp 18 18 16 B/P (MAP) 161/71 (101) 147/60 (89) Pulse Ox 95 98 O2 Delivery Room Air Room Air Room Air Room Air 05/13/19 05/13/19 05/13/19 05/13/19 20:45 21:00 21:30 21:36 Pulse 60 58 58 Resp 18 18 18 16 B/P (MAP) 149/61 (90) 157/66 (96) 138/58 (84) Pulse Ox 98 98 95 O2 Delivery Room Air Room Air Room Air Room Air 05/13/19 05/13/19 05/13/19 05/13/19 21:37 22:01 22:36 23:00 Temp 97.4 97.4 Pulse 62 67 63 Resp 18 18 18 B/P (MAP) 138/58 107/44 (65) 110/99 (103) Pulse Ox 97 95 O2 Delivery Room Air Room Air Room Air 05/13/19 05/14/19 05/14/19 05/14/19 23:01 00:01 03:00 07:40 Temp 98.1 98.2 98.1 98.2 Pulse 65 60 59 62 Resp 18 18 18 18 B/P (MAP) 104/42 (62) 115/44 (67) 132/67 (88) 144/55 (84) Pulse Ox 94 96 96 96 O2 Delivery Room Air Room Air Room Air Room Air Intake and Output 05/13/19 05/13/19 05/14/19 15:00 23:00 07:00 Intake Total 0 ml 320 ml Output Total 100 ml 0 ml Balance 0 ml 220 ml 0 ml RUMA HAMILTON MD May 14, 2019 08:37
[2019-05-14] MEDS: MULTIVITAMIN I-VITE TABLET. PO SCH (09:21)
[2019-05-14] MEDS: ASCORBIC ACID 500 MG TABLET PO SCH (09:22)
[2019-05-14] MEDS: traMADol 50 MG TABLET PO PRN (09:22)
[2019-05-14] MEDS: LACTOBACILLUS RHAMNOSUS GG 1 CAPSULE. PO SCH ×2 (09:23→18:16)
[2019-05-14] MEDS: CHLORTHALIDONE 25 MG TABLET. PO SCH (09:23)
[2019-05-14] MEDS: METOPROLOL TART IMMED RELEASE 25 MG TABLET. PO SCH ×2 (09:23→20:49)
[2019-05-14] MEDS: ASPIRIN ENTERIC COATED 81 MG TABLET.DR. PO SCH (09:24)
[2019-05-14] MEDS ORDERED: LACTULOSE 20 GM/30 ML SOLUTION. PO PRN (13:30)
[2019-05-14] MEDS: POLYETHYLENE GLYCOL 3350 17 GM PACKET. PO SCH (15:00)
[2019-05-14] MEDS: PSYLLIUM HUSK (SUGAR FREE) 1 PKT PACKET PO SCH (15:00)
[2019-05-14] MEDS: cefTRIAXone IV Push 1 GM VIAL. IVP SCH (18:01)
[2019-05-14] MEDS: ENOXAPARIN 40 MG/0.4 ML SYRINGE. SQ SCH (20:49)
[2019-05-14] MEDS: ONDANSETRON PF 4 MG/2 ML VIAL. IV PRN (22:49)
[2019-05-15 03:00] VITALS: BP 146/79
[2019-05-15 07:00] VITALS: BP 154/69
[2019-05-15] MEDS: POLYETHYLENE GLYCOL 3350 17 GM PACKET. PO SCH (09:00)
[2019-05-15] MEDS: PSYLLIUM HUSK (SUGAR FREE) 1 PKT PACKET PO SCH (09:00)
--- NOTE | 2019-05-15 09:11 | PDOC ---
PROGRESS NOTES Chief Complaint Chief Complaint RIGHT Hip pressure wound, new drainage packed cultured - vac in place CAD s/p stent placement - Follows closely with Dr. Henson Hypertension - cont meds. Hyperlipidemia - statin hx Hypokalemia - will monitor, Lung CA - s/p resection Valvular disease - Chronic venous insufficiency - //OT for lymphedema wraps Left toe ulcer - wound care to see Left leg weakness - she has had for at least [address] head was negative. PMR seeing outpatient, will need rehab. There is background concern she may have had CVA prior to admission. Will d/w PMR and consult neuro if necessary. Diastolic CHF - unfortunately with increased PA pressures she is at increased risk of right heart failure which appears acute, but required fluids up front for her rhabdo, will try to back off fluids now. History of Present Illness History of Present Illness Ms Medina is a 83 yo F w/ PMHx, high cholesterol, CAD, Hypertension, lymphedema, lung ca who found on the floor 04/12 , she states she slid off her mattress and fell TRANSFERRED TO EARLY APRIL 2019 She has no significant pain complain. She has multiple abrasions, healing . right hip wound now progressive deep wound since admit to She notes she has had progressive bilateral LE weakness and swelling over the past 4 months, 05/13: Irrigation debridement right hip wound with wound VAC placement 05/14: Today awake, somewhat alert, but forgetful. C/o right calf cramping post- operatively and is requesting a laxative for constipation. Forgetful today, pleasant. Little pain. No SOB or CP. Vitals Vitals Vital Signs Date Time Temp Pulse Resp B/P (MAP) Pulse Ox O2 Delivery O2 Flow Rate FiO2 05/15/19 07:00 98.1 66 18 154/69 (97) 96 Room Air 98.1 Physical Exam General: Alert, Oriented X3, Cooperative, No acute distress Lungs: Clear Abdomen: Normal bowel sounds, Soft Extremities: No clubbing, No cyanosis Comment Review of Relevant I have reviewed the following items esteban (where applicable) has been applied. Labs Laboratory Tests Test 05/13/19 12:05 White Blood Count 7.3 x10^3/uL (4.0-11.0) Red Blood Count 3.72 x10^6/uL (3.50-5.40) Hemoglobin 10.9 g/dL (12.0-15.5) Hematocrit 33.4 % (36.0-47.0) Mean Corpuscular Volume 90 fL (79-100) Mean Corpuscular Hemoglobin 29 pg (25-35) Mean Corpuscular Hemoglobin Concent 33 g/dL (31-37) Red Cell Distribution Width 15.0 % (11.5-14.5) Platelet Count 203 x10^3/uL (140-400) Neutrophils (%) (Auto) 57 % (31-73) Lymphocytes (%) (Auto) 24 % (24-48) Monocytes (%) (Auto) 11 % (0-9) Eosinophils (%) (Auto) 7 % (0-3) Basophils (%) (Auto) 1 % (0-3) Neutrophils # (Auto) 4.2 x10^3/uL (1.8-7.7) Lymphocytes # (Auto) 1.7 x10^3/uL (1.0-4.8) Monocytes # (Auto) 0.8 x10^3/uL (0.0-1.1) Eosinophils # (Auto) 0.5 x10^3/uL (0.0-0.7) Basophils # (Auto) 0.1 x10^3/uL (0.0-0.2) Sodium Level 141 mmol/L (136-145) Potassium Level 3.9 mmol/L (3.5-5.1) Chloride Level 102 mmol/L (98-107) Carbon Dioxide Level 31 mmol/L (21-32) Anion Gap 8 (6-14) Blood Urea Nitrogen 27 mg/dL (7-20) Creatinine 1.0 mg/dL (0.6-1.0) Estimated GFR (Cockcroft-Gault) 64.2 BUN/Creatinine Ratio 27 (6-20) Glucose Level 87 mg/dL (70-99) Calcium Level 9.5 mg/dL (8.5-10.1) Total Bilirubin 0.8 mg/dL (0.2-1.0) Aspartate Amino Transf (AST/SGOT) 20 U/L (15-37) Alanine Aminotransferase (ALT/SGPT) 20 U/L (14-59) Alkaline Phosphatase 32 U/L (46-116) Total Protein 6.7 g/dL (6.4-8.2) Albumin 3.1 g/dL (3.4-5.0) Albumin/Globulin Ratio 0.9 (1.0-1.7) Medications Current Medications Ascorbic Acid (Vitamin C) 500 mg DAILY PO Last administered on 05/14/19 09:22; Start 05/13/19 at 09:00 Aspirin (Ecotrin) 81 mg DAILYWBKFT PO Last administered on 05/14/19 09:24; Start 05/13/19 at 08:00 Acetaminophen/ Hydrocodone Bitart (Lortab 5/325) 1 tab PRN Q6HRS PRN PO PAIN; Start 05/12/19 at 14:30; Stop 05/12/19 at 14:54; Status DC Metoprolol Tartrate (Lopressor) 25 mg BID PO Last administered on 05/14/19 20:49; Start 05/12/19 at 21:00 Multivitamins/ Minerals (I-Sidra) 1 tab DAILY PO Last administered on 05/14/19 09:21; Start 05/13/19 at 09:00 Chlorthalidone (Thalitone) 25 mg DAILY PO Last administered on 05/14/19 09:23; Start 05/13/19 at 09:00 Ceftriaxone Sodium (Rocephin) 1 gm Q24H IVP Last administered on 05/14/19 18:01; Start 05/12/19 at 15:00 Enoxaparin Sodium (Lovenox 40mg Syringe) 40 mg Q24H SQ ; Start 05/12/19 at 21:00 Tramadol HCl (Ultram) 50 mg PRN Q6HRS PRN PO PAIN Last administered on 05/14/19 09:22; Start 05/12/19 at 15:00 Ondansetron HCl (Zofran) 4 mg PRN Q6HRS PRN IV NAUSEA/VOMITING; Start 05/13/19 at 08:45; Stop 05/14/19 at 08:44; Status DC Fentanyl Citrate (Fentanyl 2ml Vial) 25 mcg PRN Q5MIN PRN IV MILD PAIN 1-3; Start 05/13/19 at 08:45; Stop 05/14/19 at 08:44; Status DC Fentanyl Citrate (Fentanyl 2ml Vial) 50 mcg PRN Q5MIN PRN IV MODERATE TO SEVERE PAIN Last administered on 05/13/19at 20:09; Start 05/13/19 at 08:45; Stop 05/14/19 at 08:44; Status DC Morphine Sulfate (Morphine Sulfate) 1 mg PRN Q10MIN PRN IV SEVERE PAIN 7-10; Start 05/13/19 at 08:45; Stop 05/14/19 at 08:44; Status DC Ringer's Solution 1,000 ml @ 30 mls/hr Q24H IV Last administered on 05/13/19at 17:37; Start 05/13/19 at 08:38; Stop 05/13/19 at 20:37; Status DC Lidocaine HCl (Xylocaine-Mpf 1% 2ml Vial) 2 ml 1X PRN PRN ID IV START; Start 05/13/19 at 08:45; Stop 05/14/19 at 08:44; Status DC Hydromorphone HCl (Dilaudid) 0.5 mg PRN Q10MIN PRN IV SEV PAIN, Second choice; Start 05/13/19 at 08:45; Stop 05/14/19 at 08:44; Status DC Prochlorperazine Edisylate (Compazine) 5 mg PACU PRN PRN IV NAUSEA, MRX1; Start 05/13/19 at 08:45; Stop 05/14/19 at 08:44; Status DC Lactobacillus Rhamnosus (Culturelle) 1 cap BID PO Last administered on 05/14/19at 09:23; Start 05/13/19 at 21:00 Sevoflurane (Ultane) 15 ml STK-MED ONCE IH ; Start 05/13/19 at 17:43; Stop 05/13/19 at 17:44; Status DC Propofol 20 ml @ As Directed STK-MED ONCE IV ; Start 05/13/19 at 17:43; Stop 05/13/19 at 17:44; Status DC Lidocaine HCl (Lidocaine Pf 2% Vial) 5 ml STK-MED ONCE .ROUTE ; Start 05/13/19 at 17:43; Stop 05/13/19 at 17:44; Status DC Ketorolac Tromethamine (Toradol For Or Only) 30 mg STK-MED ONCE INJ ; Start 05/13/19 at 17:43; Stop 05/13/19 at 17:44; Status DC Ondansetron HCl (Zofran) 4 mg STK-MED ONCE .ROUTE ; Start 05/13/19 at 17:43; Stop 05/13/19 at 17:44; Status DC Phenylephrine HCl (PHENYLEPHRINE in 0.9% NACL PF) 1 mg STK-MED ONCE IV ; Start 05/13/19 at 18:06; Stop 05/13/19 at 18:07; Status DC Ephedrine Sulfate (ePHEDrine PF IN SALINE SYRINGE) 50 mg STK-MED ONCE IV ; Start 05/13/19 at 18:24; Stop 05/13/19 at 18:25; Status DC Fentanyl Citrate (Fentanyl 2ml Vial) 100 mcg STK-MED ONCE .ROUTE ; Start 05/13/19 at 19:50; Stop 05/13/19 at 19:51; Status DC Psyllium Hydrophilic Mucilloid (Metamucil Fiber Packet) 1 pkt DAILY PO ; Start 05/14/19 at 15:00 Polyethylene Glycol (miraLAX PACKET) 17 gm DAILY PO ; Start 05/14/19 at 15:00 Lactulose (Lactulose) 20 gm PRN DAILY PRN PO CONSTIPATION; Start 05/14/19 at 13:30 Ondansetron HCl (Zofran) 4 mg PRN Q6HRS PRN IV NAUSEA/VOMITING Last administered on 05/14/19at 22:49; Start 05/14/19 at 20:30 Active Scripts Active I-Sidra Tablet (Vit A,C & E/Lutein/Minerals) 1 Each Tablet 1 Tab PO DAILY Vitamin C (Ascorbic Acid) 500 Mg Tablet 500 Mg PO DAILY Aspirin Ec (Aspirin) 81 Mg Tablet.dr 81 Mg PO DAILYWBKFT Metoprolol Tartrate 25 Mg Tablet 25 Mg PO BID MDD 1 [place] 5-325 Tablet (Acetaminophen/Hydrocodone Bitart) 1 Each Tablet 1 Tab PO PRN Q6HRS PRN Reported Tramadol Hcl 50 Mg Tablet 50 Mg PO Q6HRS PRN Celebrex (Celecoxib) 200 Mg Capsule 200 Mg PO BID 30 Days Prednisone 5 Mg/5 Ml Solution 10 Mg PO DAILY Tizanidine Hcl 4 Mg Tablet 2 Mg PO TID Chlorothiazide 250 Mg Tablet 25 Mg PO DAILY Vitals/I & O Vital Sign - Last 24 Hours 05/14/19 05/14/19 05/14/19 05/14/19 09:22 09:23 10:22 11:00 Temp 98.5 98.5 Pulse 62 60 Resp 20 20 18 B/P (MAP) 144/55 113/58 (76) Pulse Ox 96 O2 Delivery Room Air Room Air Room Air 05/14/19 05/14/19 05/14/19 05/14/19 15:00 16:22 19:00 20:00 Temp 97.9 97.9 97.5 97.9 97.9 97.5 Pulse 61 61 66 Resp 18 18 18 B/P (MAP) 138/59 (85) 138/59 (85) 182/76 (111) Pulse Ox 99 99 97 O2 Delivery Room Air Room Air Room Air Room Air 05/14/19 05/14/19 05/15/19 05/15/19 20:49 23:01 03:00 07:00 Temp 97.8 97.9 98.1 97.8 97.9 98.1 Pulse 60 66 62 66 Resp 18 18 18 B/P (MAP) 152/66 185/93 (123) 146/79 (101) 154/69 (97) Pulse Ox 97 97 96 O2 Delivery Room Air Room Air Room Air RUMA HAMILTON MD May 15, 2019 09:11
[2019-05-15] MEDS: ONDANSETRON PF 4 MG/2 ML VIAL. IV PRN (09:52)
[2019-05-15] MEDS: CHLORTHALIDONE 25 MG TABLET. PO SCH (09:53)
[2019-05-15] MEDS: traMADol 50 MG TABLET PO PRN ×2 (09:54→21:28)
[2019-05-15] MEDS: MULTIVITAMIN I-VITE TABLET. PO SCH (09:54)
[2019-05-15] MEDS: ASPIRIN ENTERIC COATED 81 MG TABLET.DR. PO SCH (09:54)
[2019-05-15] MEDS: ASCORBIC ACID 500 MG TABLET PO SCH (09:54)
[2019-05-15] MEDS: LACTOBACILLUS RHAMNOSUS GG 1 CAPSULE. PO SCH ×2 (09:54→21:26)
[2019-05-15] MEDS: METOPROLOL TART IMMED RELEASE 25 MG TABLET. PO SCH ×2 (09:55→21:27)
[2019-05-15 11:00] VITALS: BP 111/61
[2019-05-15 15:00] VITALS: BP 151/58
[2019-05-15] MEDS: cefTRIAXone IV Push 1 GM VIAL. IVP SCH (15:00)
[2019-05-15 19:00] VITALS: BP 127/70
[2019-05-15] MEDS: ENOXAPARIN 40 MG/0.4 ML SYRINGE. SQ SCH (21:00)
[2019-05-15 23:00] VITALS: BP 95/54
[2019-05-16] VITALS (7 sets, daily range): BP systolic 92–132; BP diastolic 53–73
[2019-05-16] MEDS: PSYLLIUM HUSK (SUGAR FREE) 1 PKT PACKET PO SCH (09:00)
[2019-05-16] MEDS: POLYETHYLENE GLYCOL 3350 17 GM PACKET. PO SCH (09:00)
[2019-05-16] MEDS: CHLORTHALIDONE 25 MG TABLET. PO SCH (09:01)
[2019-05-16] MEDS: MULTIVITAMIN I-VITE TABLET. PO SCH (09:01)
[2019-05-16] MEDS: METOPROLOL TART IMMED RELEASE 25 MG TABLET. PO SCH ×2 (09:01→21:39)
[2019-05-16] MEDS: ASPIRIN ENTERIC COATED 81 MG TABLET.DR. PO SCH (09:01)
[2019-05-16] MEDS: LACTOBACILLUS RHAMNOSUS GG 1 CAPSULE. PO SCH ×2 (09:01→21:38)
[2019-05-16] MEDS: ASCORBIC ACID 500 MG TABLET PO SCH (09:02)
[2019-05-16] MEDS: traMADol 50 MG TABLET PO PRN ×3 (09:02→21:42)
[2019-05-16] MEDS: LIDOCAINE (700MG/PATCH) PATCH. TD SCH (11:43)
--- NOTE | 2019-05-16 12:13 | PDOC ---
PROGRESS NOTES Chief Complaint Chief Complaint RIGHT Hip pressure wound, new drainage packed cultured - vac in place CAD s/p stent placement - Follows closely with Dr. Henson Hypertension - cont meds. Hyperlipidemia - statin hx Hypokalemia - will monitor, Lung CA - s/p resection Valvular disease - Chronic venous insufficiency - //OT for lymphedema wraps Left toe ulcer - wound care to see Left leg weakness - she has had for at least [address] head was negative. PMR seeing outpatient, will need rehab. There is background concern she may have had CVA prior to admission. Will d/w PMR and consult neuro if necessary. Diastolic CHF - unfortunately with increased PA pressures she is at increased risk of right heart failure which appears acute, but required fluids up front for her rhabdo, will try to back off fluids now. History of Present Illness History of Present Illness Ms Medina is a 83 yo F w/ PMHx, high cholesterol, CAD, Hypertension, lymphedema, lung ca who found on the floor 04/12 , she states she slid off her mattress and fell TRANSFERRED TO [facility] 2019 She has no significant pain complain. She has multiple abrasions, healing . right hip wound now progressive deep wound since admit to She notes she has had progressive bilateral LE weakness and swelling over the past 4 months, 05/13: Irrigation debridement right hip wound with wound VAC placement 05/14: Today awake, somewhat alert, but forgetful. C/o right calf cramping post- operatively and is requesting a laxative for constipation. Forgetful today, pleasant. Little pain. No SOB or CP. Vitals Vitals Vital Signs Date Time Temp Pulse Resp B/P (MAP) Pulse Ox O2 Delivery O2 Flow Rate FiO2 05/16/19 11:00 97.7 59 18 95/54 (68) 97 Room Air 97.7 Physical Exam General: Alert, Oriented X3, Cooperative, No acute distress Lungs: Clear Abdomen: Normal bowel sounds, Soft Extremities: No clubbing, No cyanosis Assessment and Plan Assessmemt and Plan Problems Medical Problems: (1) CAD (coronary artery disease) Status: Chronic (2) Chronic venous insufficiency Status: Chronic (3) Diastolic CHF Status: Chronic (4) HTN (hypertension) Status: Chronic (5) Hyperlipidemia Status: Chronic (6) Hypokalemia Status: Acute Comment Review of Relevant I have reviewed the following items esteban (where applicable) has been applied. Labs Microbiology 05/13/19 Anaerobic/Aerobic Culture, Resulted Pending 05/13/19 Anaerobic Culture Result 1 (ITZ), Resulted Pending 05/13/19 Aerobic Culture, Resulted Pending 05/13/19 Aerobic Culture Result 1 (ITZ), Resulted Pending 05/13/19 Gram Stain - Final, Resulted 05/13/19 Gram Stain Result 1 (ITZ) - Final, Resulted 05/13/19 Gram Stain Result 2 (ITZ) - Final, Resulted Medications Current Medications Ascorbic Acid (Vitamin C) 500 mg DAILY PO Last administered on 05/16/19 09:02; Start 05/13/19 at 09:00 Aspirin (Ecotrin) 81 mg DAILYWBKFT PO Last administered on 05/16/19 09:01; Start 05/13/19 at 08:00 Acetaminophen/ Hydrocodone Bitart (Lortab 5/325) 1 tab PRN Q6HRS PRN PO PAIN; Start 05/12/19 at 14:30; Stop 05/12/19 at 14:54; Status DC Metoprolol Tartrate (Lopressor) 25 mg BID PO Last administered on 05/16/19 09:01; Start 05/12/19 at 21:00 Multivitamins/ Minerals (I-Sidra) 1 tab DAILY PO Last administered on 05/16/19 09:01; Start 05/13/19 at 09:00 Chlorthalidone (Thalitone) 25 mg DAILY PO Last administered on 05/16/19 09:01; Start 05/13/19 at 09:00 Ceftriaxone Sodium (Rocephin) 1 gm Q24H IVP Last administered on 05/15/19at 15:00; Start 05/12/19 at 15:00 Enoxaparin Sodium (Lovenox 40mg Syringe) 40 mg Q24H SQ ; Start 05/12/19 at 21:00 Tramadol HCl (Ultram) 50 mg PRN Q6HRS PRN PO PAIN Last administered on 05/16/19 09:02; Start 05/12/19 at 15:00 Ondansetron HCl (Zofran) 4 mg PRN Q6HRS PRN IV NAUSEA/VOMITING; Start 05/13/19 at 08:45; Stop 05/14/19 at 08:44; Status DC Fentanyl Citrate (Fentanyl 2ml Vial) 25 mcg PRN Q5MIN PRN IV MILD PAIN 1-3; Start 05/13/19 at 08:45; Stop 05/14/19 at 08:44; Status DC Fentanyl Citrate (Fentanyl 2ml Vial) 50 mcg PRN Q5MIN PRN IV MODERATE TO SEVERE PAIN Last administered on 05/13/19at 20:09; Start 05/13/19 at 08:45; Stop 05/14/19 at 08:44; Status DC Morphine Sulfate (Morphine Sulfate) 1 mg PRN Q10MIN PRN IV SEVERE PAIN 7-10; Start 05/13/19 at 08:45; Stop 05/14/19 at 08:44; Status DC Ringer's Solution 1,000 ml @ 30 mls/hr Q24H IV Last administered on 05/13/19at 17:37; Start 05/13/19 at 08:38; Stop 05/13/19 at 20:37; Status DC Lidocaine HCl (Xylocaine-Mpf 1% 2ml Vial) 2 ml 1X PRN PRN ID IV START; Start 05/13/19 at 08:45; Stop 05/14/19 at 08:44; Status DC Hydromorphone HCl (Dilaudid) 0.5 mg PRN Q10MIN PRN IV SEV PAIN, Second choice; Start 05/13/19 at 08:45; Stop 05/14/19 at 08:44; Status DC Prochlorperazine Edisylate (Compazine) 5 mg PACU PRN PRN IV NAUSEA, MRX1; Start 05/13/19 at 08:45; Stop 05/14/19 at 08:44; Status DC Lactobacillus Rhamnosus (Culturelle) 1 cap BID PO Last administered on 05/16/19at 09:01; Start 05/13/19 at 21:00 Sevoflurane (Ultane) 15 ml STK-MED ONCE IH ; Start 05/13/19 at 17:43; Stop at 17:44; Status DC Propofol 20 ml @ As Directed STK-MED ONCE IV ; Start 05/13/19 at 17:43; Stop 05/13/19 at 17:44; Status DC Lidocaine HCl (Lidocaine Pf 2% Vial) 5 ml STK-MED ONCE .ROUTE ; Start 05/13/19 at 17:43; Stop 05/13/19 at 17:44; Status DC Ketorolac Tromethamine (Toradol For Or Only) 30 mg STK-MED ONCE INJ ; Start 05/13/19 at 17:43; Stop 05/13/19 at 17:44; Status DC Ondansetron HCl (Zofran) 4 mg STK-MED ONCE .ROUTE ; Start 05/13/19 at 17:43; Stop 05/13/19 at 17:44; Status DC Phenylephrine HCl (PHENYLEPHRINE in 0.9% NACL PF) 1 mg STK-MED ONCE IV ; Start 05/13/19 at 18:06; Stop 05/13/19 at 18:07; Status DC Ephedrine Sulfate (ePHEDrine PF IN SALINE SYRINGE) 50 mg STK-MED ONCE IV ; Start 05/13/19 at 18:24; Stop 05/13/19 at 18:25; Status DC Fentanyl Citrate (Fentanyl 2ml Vial) 100 mcg STK-MED ONCE .ROUTE ; Start 05/13/19 at 19:50; Stop 05/13/19 at 19:51; Status DC Psyllium Hydrophilic Mucilloid (Metamucil Fiber Packet) 1 pkt DAILY PO ; Start 05/14/19 at 15:00 Polyethylene Glycol (miraLAX PACKET) 17 gm DAILY PO ; Start 05/14/19 at 15:00 Lactulose (Lactulose) 20 gm PRN DAILY PRN PO CONSTIPATION; Start 05/14/19 at 13:30 Ondansetron HCl (Zofran) 4 mg PRN Q6HRS PRN IV NAUSEA/VOMITING Last administered on 05/15/19at 09:52; Start 05/14/19 at 20:30 Lidocaine (Lidoderm) 1 patch DAILY TD Last administered on 05/16/19at 11:43; Start 05/16/19 at 11:30 Miscellaneous (Lidoderm Patch Removal) 1 ea QHS ; Start 05/16/19 at 21:00 Active Scripts Active I-Sidra Tablet (Vit A,C & E/Lutein/Minerals) 1 Each Tablet 1 Tab PO DAILY Vitamin C (Ascorbic Acid) 500 Mg Tablet 500 Mg PO DAILY Aspirin Ec (Aspirin) 81 Mg Tablet.dr 81 Mg PO DAILYWBKFT Metoprolol Tartrate 25 Mg Tablet 25 Mg PO BID MDD 1 Flora 5-325 Tablet (Acetaminophen/Hydrocodone Bitart) 1 Each Tablet 1 Tab PO PRN Q6HRS PRN Reported Tramadol Hcl 50 Mg Tablet 50 Mg PO Q6HRS PRN Celebrex (Celecoxib) 200 Mg Capsule 200 Mg PO BID 30 Days Prednisone 5 Mg/5 Ml Solution 10 Mg PO DAILY Tizanidine Hcl 4 Mg Tablet 2 Mg PO TID Chlorothiazide 250 Mg Tablet 25 Mg PO DAILY Vitals/I & O Vital Sign - Last 24 Hours 05/15/19 05/15/19 05/15/19 05/15/19 15:00 19:00 21:27 21:28 Temp 97.8 98.6 97.8 98.6 Pulse 62 67 67 Resp 20 18 20 B/P (MAP) 151/58 (89) 127/70 (89) 127/70 Pulse Ox 94 96 O2 Delivery Room Air Room Air Room Air 05/15/19 05/15/19 05/15/19 05/16/19 21:30 22:28 23:00 03:00 Temp 98.7 98.7 98.7 98.7 Pulse 61 59 Resp 20 16 18 B/P (MAP) 95/54 (68) 111/68 (82) Pulse Ox 100 100 O2 Delivery Room Air Room Air Room Air Room Air 05/16/19 05/16/19 05/16/19 05/16/19 07:00 07:55 09:01 09:02 Temp 98.5 98.5 Pulse 63 63 Resp 18 B/P (MAP) 123/62 (82) 123/62 Pulse Ox 98 O2 Delivery Room Air Room Air Room Air 05/16/19 11:00 Temp 97.7 97.7 Pulse 59 Resp 18 B/P (MAP) 95/54 (68) Pulse Ox 97 O2 Delivery Room Air Intake and Output 05/15/19 05/15/19 05/16/19 14:59 22:59 06:59 Intake Total 120 ml Output Total 600 ml Balance 120 ml -600 ml KIM CURIEL MD May 16, 2019 12:13
--- NOTE | 2019-05-16 12:53 | NUR ---
SS following up with discharge planning. SS phoned and faxed clinical updates to [facility], ; fax [phone]. Pt is a long term and rehabilitation resident from [facility] and is able to return when medically stable for discharge.
[2019-05-16] MEDS: cefTRIAXone IV Push 1 GM VIAL. IVP SCH (15:10)
--- NOTE | 2019-05-16 17:18 | NUR ---
Wound Care Wound care follow up for wound vac change on right hip s/p I&D 05/13. Cleansed area and applied Veraflo vac with NS 12 ml for 10 min every 4 hours with intermittent suction at [address] Alberts. Other wounds not assessed as the dressings were changed yesterday. No other wounds noted on full skin inspection. will continue to follow for wound vac dressing changes on Thursday.
[2019-05-16] MEDS ORDERED: PATCH REMOVAL. MC SCH (21:00)
[2019-05-16] MEDS: ENOXAPARIN 40 MG/0.4 ML SYRINGE. SQ SCH (21:00)
[2019-05-17 03:00] VITALS: BP 124/78
[2019-05-17 07:00] VITALS: BP 146/71
[2019-05-17] MEDS: PSYLLIUM HUSK (SUGAR FREE) 1 PKT PACKET PO SCH (08:28)
[2019-05-17] MEDS: LIDOCAINE (700MG/PATCH) PATCH. TD SCH (08:28)
[2019-05-17] MEDS: METOPROLOL TART IMMED RELEASE 25 MG TABLET. PO SCH (08:29)
[2019-05-17] MEDS: CHLORTHALIDONE 25 MG TABLET. PO SCH (08:29)
[2019-05-17] MEDS: MULTIVITAMIN I-VITE TABLET. PO SCH (08:29)
[2019-05-17] MEDS: ASCORBIC ACID 500 MG TABLET PO SCH (08:29)
[2019-05-17] MEDS: ASPIRIN ENTERIC COATED 81 MG TABLET.DR. PO SCH (08:29)
[2019-05-17] MEDS: traMADol 50 MG TABLET PO PRN (08:29)
[2019-05-17] MEDS: POLYETHYLENE GLYCOL 3350 17 GM PACKET. PO SCH (08:30)
[2019-05-17] MEDS: LACTOBACILLUS RHAMNOSUS GG 1 CAPSULE. PO SCH (08:30)
[2019-05-17 11:00] VITALS: BP 103/60
--- NOTE | 2019-05-17 12:29 | PDOC ---
PROGRESS NOTES Chief Complaint Chief Complaint RIGHT Hip pressure wound, new drainage packed cultured - vac in place CAD s/p stent placement - Follows closely with Dr. Henson Hypertension - cont meds. Hyperlipidemia - statin hx Hypokalemia - will monitor, Lung CA - s/p resection Valvular disease - Chronic venous insufficiency - //OT for lymphedema wraps Left toe ulcer - wound care to see Left leg weakness - she has had for at least [address] head was negative. PMR seeing outpatient, will need rehab. There is background concern she may have had CVA prior to admission. Will d/w PMR and consult neuro if necessary. Diastolic CHF - unfortunately with increased PA pressures she is at increased risk of right heart failure which appears acute, but required fluids up front for her rhabdo, will try to back off fluids now. History of Present Illness History of Present Illness Ms Medina is a 83 yo F w/ PMHx, high cholesterol, CAD, Hypertension, lymphedema, lung ca who found on the floor 04/12 , she states she slid off her mattress and fell TRANSFERRED TO [facility] APR[facility] 2019 She has no significant pain complain. She has multiple abrasions, healing . right hip wound now progressive deep wound since admit to She notes she has had progressive bilateral LE weakness and swelling over the past 4 months, 05/13: Irrigation debridement right hip wound with wound VAC placement 05/14: Today awake, somewhat alert, but forgetful. C/o right calf cramping post- operatively and is requesting a laxative for constipation. Forgetful today, pleasant. Little pain. No SOB or CP. Vitals Vitals Vital Signs Date Time Temp Pulse Resp B/P (MAP) Pulse Ox O2 Delivery O2 Flow Rate FiO2 05/17/19 11:00 97.6 60 18 103/60 (74) 97 Room Air 97.6 Physical Exam General: Alert, Oriented X3, Cooperative, No acute distress Lungs: Clear Abdomen: Normal bowel sounds, Soft Extremities: No clubbing, No cyanosis Assessment and Plan Assessmemt and Plan Problems Medical Problems: (1) CAD (coronary artery disease) Status: Chronic (2) Chronic venous insufficiency Status: Chronic (3) Diastolic CHF Status: Chronic (4) HTN (hypertension) Status: Chronic (5) Hyperlipidemia Status: Chronic (6) Hypokalemia Status: Acute Comment Review of Relevant I have reviewed the following items esteban (where applicable) has been applied. Labs Microbiology 05/13/19 Anaerobic/Aerobic Culture, Resulted Pending 05/13/19 Anaerobic Culture Result 1 (ITZ), Resulted Pending 05/13/19 Aerobic Culture - Final, Resulted 05/13/19 Aerobic Culture Result 1 (ITZ) - Final, Resulted 05/13/19 Antimicrobic Susceptibility - Final, Resulted 05/13/19 Gram Stain - Final, Resulted 05/13/19 Gram Stain Result 1 (ITZ) - Final, Resulted 05/13/19 Gram Stain Result 2 (ITZ) - Final, Resulted Medications Current Medications Ascorbic Acid (Vitamin C) 500 mg DAILY PO Last administered on 05/17/19 08:29; Start 05/13/19 at 09:00 Aspirin (Ecotrin) 81 mg DAILYWBKFT PO Last administered on 05/17/19 08:29; Start 05/13/19 at 08:00 Acetaminophen/ Hydrocodone Bitart (Lortab 5/325) 1 tab PRN Q6HRS PRN PO PAIN; Start 05/12/19 at 14:30; Stop 05/12/19 at 14:54; Status DC Metoprolol Tartrate (Lopressor) 25 mg BID PO Last administered on 05/17/19 08:29; Start 05/12/19 at 21:00 Multivitamins/ Minerals (I-Sidra) 1 tab DAILY PO Last administered on 05/17/19 08:29; Start 05/13/19 at 09:00 Chlorthalidone (Thalitone) 25 mg DAILY PO Last administered on 05/17/19 08:29; Start 05/13/19 at 09:00 Ceftriaxone Sodium (Rocephin) 1 gm Q24H IVP Last administered on 05/16/19at 15:10; Start 05/12/19 at 15:00 Enoxaparin Sodium (Lovenox 40mg Syringe) 40 mg Q24H SQ ; Start 05/12/19 at 21:00 Tramadol HCl (Ultram) 50 mg PRN Q6HRS PRN PO PAIN Last administered on 05/17/19 08:29; Start 05/12/19 at 15:00 Ondansetron HCl (Zofran) 4 mg PRN Q6HRS PRN IV NAUSEA/VOMITING; Start 05/13/19 at 08:45; Stop 05/14/19 at 08:44; Status DC Fentanyl Citrate (Fentanyl 2ml Vial) 25 mcg PRN Q5MIN PRN IV MILD PAIN 1-3; Start 05/13/19 at 08:45; Stop 05/14/19 at 08:44; Status DC Fentanyl Citrate (Fentanyl 2ml Vial) 50 mcg PRN Q5MIN PRN IV MODERATE TO SEVERE PAIN Last administered on 05/13/19at 20:09; Start 05/13/19 at 08:45; Stop 05/14/19 at 08:44; Status DC Morphine Sulfate (Morphine Sulfate) 1 mg PRN Q10MIN PRN IV SEVERE PAIN 7-10; Start 05/13/19 at 08:45; Stop 05/14/19 at 08:44; Status DC Ringer's Solution 1,000 ml @ 30 mls/hr Q24H IV Last administered on 05/13/19at 17:37; Start 05/13/19 at 08:38; Stop 05/13/19 at 20:37; Status DC Lidocaine HCl (Xylocaine-Mpf 1% 2ml Vial) 2 ml 1X PRN PRN ID IV START; Start 05/13/19 at 08:45; Stop 05/14/19 at 08:44; Status DC Hydromorphone HCl (Dilaudid) 0.5 mg PRN Q10MIN PRN IV SEV PAIN, Second choice; Start 05/13/19 at 08:45; Stop 05/14/19 at 08:44; Status DC Prochlorperazine Edisylate (Compazine) 5 mg PACU PRN PRN IV NAUSEA, MRX1; Start 05/13/19 at 08:45; Stop 05/14/19 at 08:44; Status DC Lactobacillus Rhamnosus (Culturelle) 1 cap BID PO Last administered on 05/17/19at 08:30; Start 05/13/19 at 21:00 Sevoflurane (Ultane) 15 ml STK-MED ONCE IH ; Start 05/13/19 at 17:43; Stop 05/13/19 at 17:44; Status DC Propofol 20 ml @ As Directed STK-MED ONCE IV ; Start 05/13/19 at 17:43; Stop 05/13/19 at 17:44; Status DC Lidocaine HCl (Lidocaine Pf 2% Vial) 5 ml STK-MED ONCE .ROUTE ; Start 05/13/19 at 17:43; Stop 05/13/19 at 17:44; Status DC Ketorolac Tromethamine (Toradol For Or Only) 30 mg STK-MED ONCE INJ ; Start 05/13/19 at 17:43; Stop 05/13/19 at 17:44; Status DC Ondansetron HCl (Zofran) 4 mg STK-MED ONCE .ROUTE ; Start 05/13/19 at 17:43; Stop 05/13/19 at 17:44; Status DC Phenylephrine HCl (PHENYLEPHRINE in 0.9% NACL PF) 1 mg STK-MED ONCE IV ; Start 05/13/19 at 18:06; Stop 05/13/19 at 18:07; Status DC Ephedrine Sulfate (ePHEDrine PF IN SALINE SYRINGE) 50 mg STK-MED ONCE IV ; Start 05/13/19 at 18:24; Stop 05/13/19 at 18:25; Status DC Fentanyl Citrate (Fentanyl 2ml Vial) 100 mcg STK-MED ONCE .ROUTE ; Start 05/13/19 at 19:50; Stop 05/13/19 at 19:51; Status DC Psyllium Hydrophilic Mucilloid (Metamucil Fiber Packet) 1 pkt DAILY PO Last administered on 05/17/19at 08:28; Start 05/14/19 at 15:00 Polyethylene Glycol (miraLAX PACKET) 17 gm DAILY PO ; Start 05/14/19 at 15:00 Lactulose (Lactulose) 20 gm PRN DAILY PRN PO CONSTIPATION; Start 05/14/19 at 13:30 Ondansetron HCl (Zofran) 4 mg PRN Q6HRS PRN IV NAUSEA/VOMITING Last administered on 05/15/19at 09:52; Start 05/14/19 at 20:30 Lidocaine (Lidoderm) 1 patch DAILY TD Last administered on 05/17/19at 08:28; Start 05/16/19 at 11:30 Miscellaneous (Lidoderm Patch Removal) 1 ea QHS MC Last administered on 05/16/19at 21:00; Start 05/16/19 at 21:00 Active Scripts Active I-Sidra Tablet (Vit A,C & E/Lutein/Minerals) 1 Each Tablet 1 Tab PO DAILY Vitamin C (Ascorbic Acid) 500 Mg Tablet 500 Mg PO DAILY Aspirin Ec (Aspirin) 81 Mg Tablet. 81 Mg PO DAILYWBKFT Metoprolol Tartrate 25 Mg Tablet 25 Mg PO BID MDD 1 Hawkins 5-325 Tablet (Acetaminophen/Hydrocodone Bitart) 1 Each Tablet 1 Tab PO PRN Q6HRS PRN Reported Tramadol Hcl 50 Mg Tablet 50 Mg PO Q6HRS PRN Celebrex (Celecoxib) 200 Mg Capsule 200 Mg PO BID 30 Days Prednisone 5 Mg/5 Ml Solution 10 Mg PO DAILY Tizanidine Hcl 4 Mg Tablet 2 Mg PO TID Chlorothiazide 250 Mg Tablet 25 Mg PO DAILY Vitals/I & O Vital Sign - Last 24 Hours 05/16/19 05/16/19 05/16/19 05/16/19 15:00 17:23 19:00 19:50 Temp 98.2 98.1 98.2 98.1 Pulse 66 77 Resp 18 16 B/P (MAP) 117/67 (84) 92/53 (66) Pulse Ox 96 95 O2 Delivery Room Air Room Air Room Air Room Air 05/16/19 05/16/19 05/16/19 05/16/19 21:37 21:39 21:42 22:42 Pulse 71 71 B/P (MAP) 132/73 (92) 132/73 O2 Delivery Room Air Room Air Room Air 05/16/19 05/17/19 05/17/19 05/17/19 22:50 03:00 07:00 08:29 Temp 98.6 97.7 97.6 98.6 97.7 97.6 Pulse 74 81 67 67 Resp 18 18 18 B/P (MAP) 100/56 (71) 124/78 (93) 146/71 (96) 146/71 Pulse Ox 96 97 98 O2 Delivery Room Air Room Air Room Air 05/17/19 05/17/19 08:29 11:00 Temp 97.6 97.6 Pulse 60 Resp 18 B/P (MAP) 103/60 (74) Pulse Ox 97 O2 Delivery Room Air Room Air Intake and Output 05/16/19 05/16/19 05/17/19 14:59 22:59 06:59 Intake Total 360 ml Output Total 400 ml Balance 360 ml -400 ml KIM CURIEL MD May 17, 2019 12:29
[2019-05-17] MEDS ORDERED: POLY17PO28 PO (12:35)
[2019-05-17] MEDS ORDERED: CEPH-264 PO (12:35)
[2019-05-17] MEDS ORDERED: HYDR-3164 PO (12:35)
[2019-05-17] MEDS ORDERED: LIDO700A21 TD (12:35)
--- NOTE | 2019-05-17 12:36 | SNU/HH DC ---
DISCHARGE ORDERS DISCHARGE INFORMATION: DISCHARGE DATE: May 17, 2019 FINAL DIAGNOSIS Problems Medical Problems: (1) CAD (coronary artery disease) Status: Chronic (2) Chronic venous insufficiency Status: Chronic (3) Diastolic CHF Status: Chronic (4) HTN (hypertension) Status: Chronic (5) Hyperlipidemia Status: Chronic (6) Hypokalemia Status: Acute CONDITION ON DISCHARGE: Stable CODE STATUS: Code Status: Full LONG-TERM: SNF STAY <30 DAYS: Yes POST DISCHARGE ORDERS: ACTIVITY ORDERS: No restrictions, Activity as tolerated WEIGHT BEARING STATUS: No restrictions, As tolerated DIET AFTER DISCHARGE: Regular WOUND/INCISION CARE: Change dressing OTHER WOUND INSTRUCTIONS: wound vac, consult, Dr Mcdonald CHECKS AFTER DISCHARGE: CHECKS AFTER DISCHARGE: Check blood press - daily FOLLOW-UP: PHYSICIAN FOLLOW-UP: primary care ADDITIONAL FOLLOW-UP: Dr. Alberts, s/p surg, one week TREATMENT/EQUIPMENT ORDERS: ADAPTIVE EQUIPMENT NEEDED: Front wheeled walker Physical Therapy For: Evalulation/Treatment Occupational Therapy For: Evaluation/Treatment Speech Language Pathology For: Evaluation/Treatment DISCHARGE MEDICATIONS: Home Meds Active Scripts Cephalexin (KEFLEX) 500 Mg Capsule, 1 CAP PO TID for hip wound, #18 CAP Prov:KIM CURIEL MD 05/17/19 Lidocaine (Lidocaine PATCH ) 1 Each Adh..patch, 1 PATCH TD DAILY for arm pain, #7 PATCH Prov:KIM CURIEL MD 05/17/19 Polyethylene Glycol 3350 (POLYETHYLENE GLYCOL 3350) 17 Gm Powd.pack, 17 GM PO DAILY for constipation, #30 PKT Prov:KIM CURIEL MD 05/17/19 Hydrocodone/Apap 5-325 (NORCO 5-325 TABLET) 1 Each Tablet, 1 TAB PO PRN Q6HRS PRN for PAIN, #20 TAB 0 Refills Prov:KIM CURIEL MD 05/17/19 Vit A,C & E/Lutein/Minerals (I-OLLIE TABLET) 1 Each Tablet, 1 TAB PO DAILY for mvi, #60 TAB Prov:ARSENIO PLAZA MD 04/18/19 Ascorbic Acid (VITAMIN C) 500 Mg Tablet, 500 MG PO DAILY for wound healing, #60 TAB Prov:ARSENIO PLAZA MD 04/18/19 Aspirin (ASPIRIN EC) 81 Mg Tablet.dr 81 MG PO DAILYWBKFT for prevntion, #60 TAB.SR Prov:ARSENIO PLAZA MD 04/18/19 Metoprolol Tartrate (METOPROLOL TARTRATE) 25 Mg Tablet, 25 MG PO BID for htn MDD 1, #60 TAB Prov:ARSENIO PLAZA MD 04/18/19 Reported Medications Tramadol Hcl (TRAMADOL HCL) 50 Mg Tablet, 50 MG PO Q6HRS PRN for PAIN, TAB 05/12/19 Celecoxib (CELEBREX) 200 Mg Capsule, 200 MG PO BID for joint pain for 30 Days, CAP 0 Refills 05/12/19 Prednisone (PREDNISONE) 5 Mg/5 Ml Solution, 10 MG PO DAILY for inflammation, ML 05/12/19 Tizanidine Hcl (TIZANIDINE HCL) 4 Mg Tablet, 2 MG PO TID for muscle spasm, #90 TAB 05/12/19 Chlorothiazide (CHLOROTHIAZIDE) 250 Mg Tablet, 25 MG PO DAILY for htn, TAB 05/12/19 Discontinued Reported Medications Mupirocin Calcium (MUPIROCIN CREAM) 15 Gm Cream..g., 1 INNA TP TID for cellulitis, TUBE 04/13/19 KIM CURIEL MD May 17, 2019 12:36
--- NOTE | 2019-05-17 14:23 | NUR ---
SS following up with discharge planning. Discharge orders received for return to [facility], ; fax [phone]. SS phoned and faxed discharge orders to [facility]. Pt will discharge today and return to [facility] between 1600 and 1630 via [facility]. Pt, pt's RN, and pt's family notified.
[2019-05-17 15:00] VITALS: BP 120/87
[2019-05-17] MEDS: cefTRIAXone IV Push 1 GM VIAL. IVP SCH (16:18)
--- NOTE | 2019-05-17 16:40 | NUR ---
Pt discharged to by w/c [facility], report given to Sruthi RN. Per Lindsay, product examiner at , wound vac foam and tubing left in place, tucked in glove and secured with elastic band. Wounds to right abdomen and right lat lower leg pictured and redressed. Pt denied pain at discharge. All belongings sent with medical van driver. No other changes from previous assessment.
== END 2019-05-17 16:38 | DRG 571 ==
LOC: 4 NORTH 12:14
PROVIDERS: ADMIT Family Medicine; ATTEND Family Medicine
PROC: 0JBL0ZZ Excision of Right Upper Leg Subcutaneous Tissue and Fascia, Open Approach (ICD-10-PCS; principal; 2019-05-13 16:35)
DX: L89.219 Pressure ulcer of right hip, unspecified stage (principal); C34.90 Malignant neoplasm of unspecified part of unspecified bronchus or lung; I50.32 Chronic diastolic (congestive) heart failure; M62.82 Rhabdomyolysis; E78.00 Pure hypercholesterolemia, unspecified; E78.5 Hyperlipidemia, unspecified; I11.0 Hypertensive heart disease with heart failure; I25.10 Atherosclerotic heart disease of native coronary artery without angina pectoris; I87.2 Venous insufficiency (chronic) (peripheral); I89.0 Lymphedema, not elsewhere classified; L97.529 Non-pressure chronic ulcer of other part of left foot with unspecified severity; K59.00 Constipation, unspecified; E87.6 Hypokalemia; G62.9 Polyneuropathy, unspecified; S70.211A Abrasion, right hip, initial encounter; X58.XXXA Exposure to other specified factors, initial encounter; Y93.89 Activity, other specified; Y92.89 Other specified places as the place of occurrence of the external cause; Y99.8 Other external cause status; Z79.899 Other long term (current) drug therapy; Z98.42 Cataract extraction status, left eye; Z82.49 Family history of ischemic heart disease and other diseases of the circulatory system; Z95.5 Presence of coronary angioplasty implant and graft; Z98.41 Cataract extraction status, right eye
CPT/HCPCS: 36415; 80053; 85025; 87071; 87075; 87641; J0171; J0696; J1885; J2001; J2370; J2405; J2704; J3010; J7030; J7120; 97110; 97140; 97530; 97535; A4461

== ENCOUNTER → 2020-05-31 | Outpatient (CLI) | payer MEDICARE, OTHER ==
[~2020-05-31] MED LIST changes: -ASCO500T2 PO; +ASCO500T4 PO; -ASPI-612 PO; +ASPI-886 PO; +CEPH-264 PO; +CHLO250T4 PO; +LIDO700A21 TD; +POLY17PO28 PO; +PRED5SOL PO; +TIZA4TAB2 PO
--- NOTE | 2020-05-31 16:40 | RAD ---
Left lower extremity arterial duplex ultrasound 05/31/2020 INDICATION: Nonhealing ulcer, lateral left calf 05/31/2020 comparison study: None Discussion: Ultrasound evaluation of the major arteries of the left lower extremity were performed including color Doppler imaging spectral analysis. FINDINGS: Exam is limited by body habitus and significant left lower extremity edema. Blunted waveforms appear to be present throughout the left lower extremity. This may be due to technical limitations, though aortoiliac stenosis is possible. The common femoral, superficial femoral, popliteal, posterior tibial, anterior tibial, and dorsalis pedis artery appear to be grossly patent without focal evidence of hemodynamically significant stenosis. The peroneal artery is nonvisualized likely secondary to the combination of body habitus and edema. No focal occlusion or aneurysm is seen. Ankle-brachial indices are not obtainable secondary to noncompressibility of distal arteries. Impression: 1. Limited study without evidence of hemodynamically significant stenosis involving the visualized arteries of the left lower extremity 2. Mild diffuse blunting of waveforms may be artifactual, though could reflect an aortoiliac stenosis. 3. In the setting of poorly healing left lower extremity foot wound, consider conventional angiography for detailed evaluation Electronically signed by: Judah Giron MD (05/31/2020 4:37 PM) [id number]
== END | disposition home or self-care (01) ==
LOC: US 12:40
PROVIDERS: ATTEND Emergency Medicine Undersea and Hyperbaric Medicine
DX: I70.202 Unspecified atherosclerosis of native arteries of extremities, left leg (principal); L97.929 Non-pressure chronic ulcer of unspecified part of left lower leg with unspecified severity; R22.42 Localized swelling, mass and lump, left lower limb
CPT/HCPCS: 93926